=== PATIENT | male | born 1955 | race Caucasian/White ===

== ENCOUNTER 2016-12-04 13:02 | Inpatient (IN) | payer MEDICAID ==
[~2016-12-04] VITALS: Ht 175.3 cm; Wt 76.7 kg
[~2016-12-04 13:02] MED LIST: AMIO100T4 PO; ASPI-518 PO; ATOR40TA70 PO; CALC-751 PO; DIPH50TA19 PO; FOLATE; FOLI-43 PO; FURO-152 PO; LISI10TA5 PO; METO-298 PO; MULT-1146 PO; OMEP20CA10 PO; POTA10CA42 PO; SPIR25TA4 PO; THIA100T13 PO; TRAM50TA3 PO; WARF5TAB76 PO
[2016-12-04 14:57] LABS: BASOPHILS % 2.6 % (0.0-2.0); DIFFERENTIAL COMMENT 0; EOSINOPHILS % 4.1 % (0.0-5.0); HEMATOCRIT. 28.8 % (42.0-52.0); HEMOGLOBIN. 9.4 g/dL (14.0-18.0); LYMPHOCYTES % 26.4 % (20.0-50.0); MEAN CORPUSCULAR HEMOGLOBIN 32.7 pg (28.0-32.0); MEAN CORPUSCULAR HGB CONC 32.6 g/dL (31.0-37.0); MEAN CORPUSCULAR VOLUME 100.2 fL (80.0-94.0); MEAN PLATELET VOLUME 8.9 fl (7.4-10.4); MONOCYTES % 9.8 % (2.0-8.0); NEUTROPHILS % 57.1 % (40.0-76.0); PLATELET 55 x1000/uL (130-400); RED BLOOD CELL COUNT 2.87 mill/uL (4.7-6.1); RED CELL DISTRIBUTION WIDTH 18.8 % (11.6-14.6); WHITE BLOOD COUNT 5.7 x1000/uL (4.5-11.0)
[2016-12-04 15:07] LABS: ALBUMIN 2.5 g/dL (3.4-5.0); ANION GAP 12; CALCIUM 8.3 mg/dL (8.5-10.1); CARBON DIOXIDE 21 mEq/L (21-32); CHLORIDE 112 mEq/L (98-107); INDEX HEMOLYSI 2 (1-3); INDEX ICTERIC 3 (1-4); INDEX LIPEMIC 1 (1-3); INR 1.2; PROTHROMBIN TIME 12.9 sec
[2016-12-04 15:09] LABS: UREA NITROGEN BLOOD 20 mg/dL (7-21)
[2016-12-04 15:15] LABS: ALANINE AMINOTRANSFERASE 90 IU/L (13-61); NT PRO B-TYPE NATRIURETIC PEP 2110 pg/mL (5-125); TROPONIN I 0.02 ng/mL (0.00-0.04); eGFR 57 mL/min (>60)
[2016-12-04] MEDS ORDERED: POTASSIUM CHLORIDE 20MEQ TABLET SR PO ONE (16:00)
[2016-12-04] MEDS ORDERED: FENTANYL CITRATE/PF 50MCG/ML 2ML VIAL IV ONE (16:00)
[2016-12-04] MEDS ORDERED: FUROSEMIDE 40MG/4ML VIAL IVP ONE (16:45)
[2016-12-04] MEDS ORDERED: DIPHENHYDRAMINE 50MG/ML VIAL IV PRN (17:15)
[2016-12-04] MEDS ORDERED: CLONIDINE 0.1MG TABLET PO PRN (17:15)
[2016-12-04 18:48] LABS: CLARITY URINE CLEAR (CLEAR); COLOR URINE DARK YELLOW (YELLOW); GLUCOSE URINE NEGATIVE (NEGATIVE); KETONES URINE TRACE (NEGATIVE); LEUKOCYTE ESTERASE URINE NEGATIVE (NEGATIVE); NITRITE URINE NEGATIVE (NEGATIVE); OCCULT BLOOD URINE NEGATIVE (NEGATIVE); PH URINE 5.5 (4.5-8.0); PROTEIN URINE 1+ (NEGATIVE); SPECIFIC GRAVITY URINE 1.018 (1.005-1.030)
[2016-12-04 19:20] LABS: BACTERIA URINE 1+; RBC URINE 0-2 /hpf (0-2); SQUAMOUS EPITHELIAL CELL URINE NONE SEEN /lpf (RARE/1+); WBC URINE 0-2 /hpf (0-2)
[2016-12-04 19:21] LABS: COARSE GRANULAR CASTS URINE 0-5 /lpf
[2016-12-04 22:30] VITALS: BP 104/60
[2016-12-05] VITALS: BP 113/67
[2016-12-05] MEDS: PANTOPRAZOLE SODIUM 40 MG/VIAL IV SCH ×2 (00:36→09:24)
[2016-12-05] MEDS: HYDROCODONE/ACETAMINOPHEN 5/325MG TABLET PO PRN ×3 (00:37→17:20)
[2016-12-05] MEDS: DEXT 5%/0.45% NACL 1000ML 1,000 ML IV SCH ×3 (00:39→21:01)
[2016-12-05 04:00] VITALS: BP 90/42
[2016-12-05 05:55] LABS: HEMATOCRIT. 26.9 % (42.0-52.0); HEMOGLOBIN. 8.7 g/dL (14.0-18.0); MEAN CORPUSCULAR HGB CONC 32.2 g/dL (31.0-37.0); MEAN CORPUSCULAR VOLUME 99.2 fL (80.0-94.0); MEAN PLATELET VOLUME 8.9 fl (7.4-10.4); PLATELET 52 x1000/uL (130-400); RED BLOOD CELL COUNT 2.71 mill/uL (4.7-6.1); RED CELL DISTRIBUTION WIDTH 18.8 % (11.6-14.6); WHITE BLOOD COUNT 5.6 x1000/uL (4.5-11.0)
[2016-12-05 06:06] LABS: CHLORIDE 112 mEq/L (98-107); INDEX HEMOLYSI 1 (1-3); INDEX ICTERIC 3 (1-4); INDEX LIPEMIC 1 (1-3)
[2016-12-05 06:27] LABS: DIFFERENTIAL COMMENT 1
[2016-12-05 07:22] LABS: ALANINE AMINOTRANSFERASE 81 IU/L (13-61); ALBUMIN 2.2 g/dL (3.4-5.0); ANION GAP 12; CARBON DIOXIDE 23 mEq/L (21-32); HDL CHOLESTEROL 16 mg/dL (40-59); LDL CHOLESTEROL 119 mg/dL (5-100); TRIGLYCERIDE 39 mg/dL (0-150); TROPONIN I 0.02 ng/mL (0.00-0.04); UREA NITROGEN BLOOD 20 mg/dL (7-21); eGFR 52 mL/min (>60)
[2016-12-05 07:30] LABS: CALCIUM 8.1 mg/dL (8.5-10.1)
[2016-12-05 08:00] VITALS: BP 110/49
[2016-12-05 12:00] VITALS: BP 114/64
[2016-12-05 12:15] LABS: PLATELET ESTIMATE DECREASED
[2016-12-05 12:16] LABS: ANISOCYTOSIS 1+
[2016-12-05 12:17] LABS: HYPOCHROMASIA 1+
[2016-12-05 12:33] LABS: AMMONIA 45 uMol/L (<32)
[2016-12-05 16:00] VITALS: BP 129/61
[2016-12-05] MEDS ORDERED: LISI-604 PO (16:01)
[2016-12-05] MEDS ORDERED: METO-298 PO (16:04)
[2016-12-05] MEDS ORDERED: DULO60CA44 PO (16:04)
[2016-12-05] MEDS ORDERED: LACT10SO6 PO (16:04)
[2016-12-05] MEDS: FUROSEMIDE 40MG/4ML VIAL IVP SCH (16:20)
[2016-12-05] MEDS: LACTULOSE 20G/30ML UDC PO SCH ×2 (16:20→21:01)
[2016-12-05 20:00] VITALS: BP 96/65
[2016-12-06] VITALS (14 sets, daily range): BP systolic 80–115; BP diastolic 47–79
[2016-12-06] MEDS: FUROSEMIDE 40MG/4ML VIAL IVP SCH ×3 (04:00→17:16)
[2016-12-06] MEDS: LACTULOSE 20G/30ML UDC PO SCH ×3 (06:38→21:57)
[2016-12-06 07:34] LABS: BASOPHILS % 1.3 % (0.0-2.0); EOSINOPHILS % 4.8 % (0.0-5.0); HEMATOCRIT. 27.5 % (42.0-52.0); HEMOGLOBIN. 8.8 g/dL (14.0-18.0); LYMPHOCYTES % 23.6 % (20.0-50.0); MEAN CORPUSCULAR HEMOGLOBIN 31.6 pg (28.0-32.0); MEAN CORPUSCULAR HGB CONC 32.1 g/dL (31.0-37.0); MEAN CORPUSCULAR VOLUME 98.5 fL (80.0-94.0); MEAN PLATELET VOLUME 8.7 fl (7.4-10.4); MONOCYTES % 12.4 % (2.0-8.0); NEUTROPHILS % 57.9 % (40.0-76.0); RED BLOOD CELL COUNT 2.79 mill/uL (4.7-6.1); RED CELL DISTRIBUTION WIDTH 18.4 % (11.6-14.6); WHITE BLOOD COUNT 4.8 x1000/uL (4.5-11.0)
[2016-12-06 08:31] LABS: ALANINE AMINOTRANSFERASE 70 IU/L (13-61); ALBUMIN 2.1 g/dL (3.4-5.0); ANION GAP 12; CALCIUM 8.1 mg/dL (8.5-10.1); CARBON DIOXIDE 25 mEq/L (21-32); CHLORIDE 110 mEq/L (98-107); INDEX HEMOLYSI 2 (1-3); INDEX ICTERIC 3 (1-4); INDEX LIPEMIC 1 (1-3); LIPASE 409 IU/L (73-393); MAGNESIUM 1.5 mg/dL (1.8-2.4); UREA NITROGEN BLOOD 19 mg/dL (7-21); eGFR 48 mL/min (>60)
[2016-12-06] MEDS: PANTOPRAZOLE SODIUM 40 MG/VIAL IV SCH (09:11)
[2016-12-06] MEDS: DEXT 5%/0.45% NACL 1000ML 1,000 ML IV SCH (11:36)
[2016-12-06] MEDS: IPRATROPIUM/ALBUTEROL 0.5-3(2.5)MG/3ML NEB INH PRN (15:06)
[2016-12-06] MEDS ORDERED: POTASSIUM CHLORIDE 20MEQ TABLET SR PO NR (16:30)
[2016-12-06] MEDS: HYDROCODONE/ACETAMINOPHEN 5/325MG TABLET PO PRN (21:58)
[2016-12-07] VITALS (11 sets, daily range): BP systolic 90–109; BP diastolic 43–78
[2016-12-07] MEDS: LACTULOSE 20G/30ML UDC PO SCH ×3 (06:03→21:47)
[2016-12-07] MEDS: FUROSEMIDE 40MG/4ML VIAL IVP SCH (06:03)
[2016-12-07 06:57] LABS: BASOPHILS % 0.5 % (0.0-2.0); EOSINOPHILS % 4.4 % (0.0-5.0); HEMATOCRIT. 25.7 % (42.0-52.0); HEMOGLOBIN. 8.5 g/dL (14.0-18.0); LYMPHOCYTES % 27.1 % (20.0-50.0); MEAN CORPUSCULAR HGB CONC 33.2 g/dL (31.0-37.0); MEAN CORPUSCULAR VOLUME 96.4 fL (80.0-94.0); MONOCYTES % 11.9 % (2.0-8.0); NEUTROPHILS % 56.1 % (40.0-76.0); RED BLOOD CELL COUNT 2.66 mill/uL (4.7-6.1); RED CELL DISTRIBUTION WIDTH 17.7 % (11.6-14.6); WHITE BLOOD COUNT 4.6 x1000/uL (4.5-11.0)
[2016-12-07 07:28] LABS: DIFFERENTIAL COMMENT 1; PLATELET 48 x1000/uL (130-400)
[2016-12-07 07:29] LABS: ADD RBC MORPHOLOGY YES
[2016-12-07 07:48] LABS: CALCIUM 7.7 mg/dL (8.5-10.1); MAGNESIUM 1.4 mg/dL (1.8-2.4)
[2016-12-07 08:43] LABS: ANISOCYTOSIS 2+; PLATELET ESTIMATE MARKEDLY DECREASED; TARGET CELLS 1+
[2016-12-07] MEDS: PANTOPRAZOLE SODIUM 40 MG/VIAL IV SCH (08:52)
[2016-12-07] MEDS: HYDROCODONE/ACETAMINOPHEN 5/325MG TABLET PO PRN ×2 (08:52→21:48)
[2016-12-07] MEDS ORDERED: MAGNESIUM 2 G PREMIX 50 ML IV SCH (11:00)
[2016-12-07] MEDS ORDERED: POTASSIUM CHLORIDE 20MEQ TABLET SR PO SCH (11:00)
[2016-12-07 17:48] LABS: FOLIC ACID (FOLATE) SERUM 7.6 ng/mL (>5.38)
[2016-12-07] MEDS: FOLIC ACID 1MG TABLET PO SCH (21:47)
[2016-12-07] MEDS: FUROSEMIDE 20MG/2ML VIAL IVP SCH (21:48)
[2016-12-08] VITALS (15 sets, daily range): BP systolic 88–115; BP diastolic 28–75
[2016-12-08] MEDS: LACTULOSE 20G/30ML UDC PO SCH ×3 (05:31→21:47)
[2016-12-08 06:14] LABS: AMMONIA 38 uMol/L (<32)
[2016-12-08 06:19] LABS: INR 1.3; PARTIAL THROMBOPLASTIN TIME 28.7 sec (24.0-34.0); PROTHROMBIN TIME 13.4 sec
[2016-12-08 06:52] LABS: BASOPHILS % 0.9 % (0.0-2.0); EOSINOPHILS % 5.4 % (0.0-5.0); HEMATOCRIT. 28.5 % (42.0-52.0); HEMOGLOBIN. 9.5 g/dL (14.0-18.0); LYMPHOCYTES % 28.3 % (20.0-50.0); MEAN CORPUSCULAR HEMOGLOBIN 32.2 pg (28.0-32.0); MEAN CORPUSCULAR HGB CONC 33.4 g/dL (31.0-37.0); MEAN CORPUSCULAR VOLUME 96.3 fL (80.0-94.0); MEAN PLATELET VOLUME 9.1 fl (7.4-10.4); MONOCYTES % 11.4 % (2.0-8.0); RED BLOOD CELL COUNT 2.96 mill/uL (4.7-6.1); RED CELL DISTRIBUTION WIDTH 18.1 % (11.6-14.6)
[2016-12-08 07:22] LABS: CHLORIDE 105 mEq/L (98-107); INDEX HEMOLYSI 1 (1-3); INDEX ICTERIC 3 (1-4); INDEX LIPEMIC 1 (1-3)
[2016-12-08 07:28] LABS: PLATELET 45 x1000/uL (130-400)
[2016-12-08 07:29] LABS: DIFFERENTIAL COMMENT 1
[2016-12-08 07:45] LABS: ALANINE AMINOTRANSFERASE 81 IU/L (13-61); ALBUMIN 2.2 g/dL (3.4-5.0); ANION GAP 14; BILIRUBIN DIRECT 4.1 mg/dL (0.0-0.2); CARBON DIOXIDE 27 mEq/L (21-32); IRON 69 ug/dL (50-175); MAGNESIUM 1.4 mg/dL (1.8-2.4); TOTAL IRON BINDING CAPACITY 203 ug/dL (250-450); UREA NITROGEN BLOOD 15 mg/dL (7-21); eGFR 52 mL/min (>60)
[2016-12-08] MEDS: PANTOPRAZOLE SODIUM 40 MG/VIAL IV SCH (10:24)
[2016-12-08] MEDS: FOLIC ACID 1MG TABLET PO SCH (10:24)
[2016-12-08] MEDS: FUROSEMIDE 20MG/2ML VIAL IVP SCH ×2 (10:24→21:47)
[2016-12-08 13:22] LABS: ADD RBC MORPHOLOGY YES
[2016-12-08 13:25] LABS: PLATELET 49 x1000/uL (130-400)
[2016-12-08] MEDS ORDERED: MAGNESIUM 4 G PREMIX 100 ML IV NR (14:30)
[2016-12-08] MEDS: RIFAXIMIN 550 MG TABLET PO SCH ×2 (14:35→21:47)
[2016-12-08] MEDS: POTASSIUM CHLORIDE 20MEQ TABLET SR PO SCH ×3 (14:35→21:47)
[2016-12-08] MEDS: HYDROCODONE/ACETAMINOPHEN 5/325MG TABLET PO PRN (15:12)
[2016-12-08] MEDS ORDERED: BISACODYL 5MG TABLET PO SCH ×2 (16:00→20:00)
[2016-12-08] MEDS ORDERED: SORBITOL 70% SOLN 30ML PO SCH ×2 (16:00→20:00)
[2016-12-08] MEDS: ACETAMINOPHEN 325MG TABLET PO PRN (21:47)
[2016-12-08] MEDS: ONDANSETRON HCL 4MG/2ML VIAL IV PRN (22:02)
[2016-12-09] VITALS (12 sets, daily range): BP systolic 85–114; BP diastolic 42–77
[2016-12-09] MEDS ORDERED: SORBITOL 70% SOLN 30ML PO SCH (06:00)
[2016-12-09] MEDS: ONDANSETRON HCL 4MG/2ML VIAL IV PRN (06:37)
[2016-12-09] MEDS: LACTULOSE 20G/30ML UDC PO SCH ×3 (06:40→21:00)
[2016-12-09 06:45] LABS: INR 1.3; PARTIAL THROMBOPLASTIN TIME 29.4 sec (24.0-34.0); PROTHROMBIN TIME 13.4 sec
[2016-12-09 06:50] LABS: AMMONIA < 10 uMol/L (<32); INDEX HEMOLYSI 2 (1-3)
[2016-12-09 06:52] LABS: CALCIUM 8.2 mg/dL (8.5-10.1); MAGNESIUM 2.4 mg/dL (1.8-2.4)
[2016-12-09 07:08] LABS: BASOPHILS % 1.7 % (0.0-2.0); EOSINOPHILS % 6.4 % (0.0-5.0); HEMOGLOBIN. 9.9 g/dL (14.0-18.0); LYMPHOCYTES % 24.5 % (20.0-50.0); MEAN CORPUSCULAR HEMOGLOBIN 31.6 pg (28.0-32.0); MEAN CORPUSCULAR HGB CONC 32.8 g/dL (31.0-37.0); MEAN CORPUSCULAR VOLUME 96.3 fL (80.0-94.0); NEUTROPHILS % 54.4 % (40.0-76.0); RED BLOOD CELL COUNT 3.12 mill/uL (4.7-6.1); RED CELL DISTRIBUTION WIDTH 17.7 % (11.6-14.6); WHITE BLOOD COUNT 5.4 x1000/uL (4.5-11.0)
[2016-12-09 07:25] LABS: DIFFERENTIAL COMMENT 1
[2016-12-09 08:10] LABS: PLATELET 58 x1000/uL (130-400)
[2016-12-09] MEDS: PANTOPRAZOLE SODIUM 40 MG/VIAL IV SCH (08:16)
[2016-12-09] MEDS: POTASSIUM CHLORIDE 20MEQ TABLET SR PO SCH ×5 (08:16→21:01)
[2016-12-09] MEDS: RIFAXIMIN 550 MG TABLET PO SCH ×2 (08:16→21:00)
[2016-12-09] MEDS: FUROSEMIDE 20MG/2ML VIAL IVP SCH (08:16)
[2016-12-09] MEDS: FOLIC ACID 1MG TABLET PO SCH (08:16)
[2016-12-09] MEDS ORDERED: SIMETHICONE 40 MG/0.6 ML 30ML ONE ×2 (11:46→14:07)
[2016-12-09] MEDS ORDERED: SODIUM CHLORIDE 0.9% 10ML VIAL ONE (11:46)
[2016-12-09] MEDS ORDERED: FENTANYL CITRATE/PF 50MCG/ML 2ML VIAL ONE (14:07)
[2016-12-09] MEDS ORDERED: MIDAZOLAM HCL 5 MG/5 ML VIAL ONE (14:07)
[2016-12-09] MEDS ORDERED: MIDAZOLAM HCL 2 MG/2 ML VIAL IV PRN (14:10)
[2016-12-09] MEDS ORDERED: FENTANYL CITRATE/PF 50MCG/ML 2ML VIAL IV PRN (14:10)
[2016-12-09] MEDS: POTASSIUM CHLORIDE INJ 40 MEQ in DEXT 5% WATER 250 ML IV NR (14:30)
[2016-12-09] MEDS: FUROSEMIDE 20MG TABLET PO SCH (21:00)
[2016-12-10] VITALS (12 sets, daily range): BP systolic 85–108; BP diastolic 56–77
[2016-12-10] MEDS: LACTULOSE 20G/30ML UDC PO SCH ×3 (05:30→21:26)
[2016-12-10 06:52] LABS: BASOPHILS % 1.4 % (0.0-2.0); EOSINOPHILS % 5.7 % (0.0-5.0); HEMATOCRIT. 29.2 % (42.0-52.0); HEMOGLOBIN. 9.4 g/dL (14.0-18.0); LYMPHOCYTES % 26.4 % (20.0-50.0); MEAN CORPUSCULAR HEMOGLOBIN 31.2 pg (28.0-32.0); MEAN CORPUSCULAR HGB CONC 32.4 g/dL (31.0-37.0); MEAN CORPUSCULAR VOLUME 96.3 fL (80.0-94.0); MONOCYTES % 9.7 % (2.0-8.0); NEUTROPHILS % 56.8 % (40.0-76.0); RED BLOOD CELL COUNT 3.03 mill/uL (4.7-6.1); RED CELL DISTRIBUTION WIDTH 17.7 % (11.6-14.6); WHITE BLOOD COUNT 5.6 x1000/uL (4.5-11.0)
[2016-12-10 07:32] LABS: CHLORIDE 110 mEq/L (98-107); INDEX HEMOLYSI 2 (1-3); INDEX ICTERIC 3 (1-4); INDEX LIPEMIC 1 (1-3)
[2016-12-10 07:43] LABS: ANION GAP 10; CALCIUM 8.1 mg/dL (8.5-10.1); CARBON DIOXIDE 32 mEq/L (21-32); MAGNESIUM 1.8 mg/dL (1.8-2.4); UREA NITROGEN BLOOD 11 mg/dL (7-21); eGFR > 60 mL/min (>60)
[2016-12-10] MEDS: FUROSEMIDE 20MG TABLET PO SCH ×2 (08:03→21:25)
[2016-12-10] MEDS: FOLIC ACID 1MG TABLET PO SCH (08:03)
[2016-12-10] MEDS: RIFAXIMIN 550 MG TABLET PO SCH ×2 (08:03→21:25)
[2016-12-10] MEDS: POTASSIUM CHLORIDE 20MEQ TABLET SR PO SCH ×4 (08:03→21:25)
[2016-12-10] MEDS: ACETAMINOPHEN 325MG TABLET PO PRN (08:03)
[2016-12-10] MEDS: PANTOPRAZOLE SODIUM 40 MG/VIAL IV SCH (08:03)
[2016-12-10 09:34] LABS: DIFFERENTIAL COMMENT 1
[2016-12-10 10:37] LABS: PLATELET 48 x1000/uL (130-400)
[2016-12-10] MEDS ORDERED: PROT40 PO (12:59)
[2016-12-10] MEDS: HYDROCODONE/ACETAMINOPHEN 5/325MG TABLET PO PRN ×2 (13:20→21:24)
[2016-12-11] VITALS (22 sets, daily range): BP systolic 69–131; BP diastolic 42–71
[2016-12-11] MEDS: ACETAMINOPHEN 325MG TABLET PO PRN (01:24)
[2016-12-11] MEDS ORDERED: SODIUM CHLORIDE 0.9% 250 ML IV ONE (05:00)
[2016-12-11] MEDS: LACTULOSE 20G/30ML UDC PO SCH ×3 (06:37→22:28)
[2016-12-11] MEDS: FUROSEMIDE 20MG TABLET PO SCH (08:18)
[2016-12-11] MEDS: PANTOPRAZOLE SODIUM 40 MG/VIAL IV SCH (08:40)
[2016-12-11] MEDS: RIFAXIMIN 550 MG TABLET PO SCH ×2 (08:41→20:23)
[2016-12-11] MEDS: POTASSIUM CHLORIDE 20MEQ TABLET SR PO SCH ×3 (08:41→17:14)
[2016-12-11] MEDS: FOLIC ACID 1MG TABLET PO SCH (08:41)
[2016-12-12] VITALS (13 sets, daily range): BP systolic 84–112; BP diastolic 58–75
[2016-12-12 05:43] LABS: BASOPHILS % 0.7 % (0.0-2.0); EOSINOPHILS % 3.5 % (0.0-5.0); HEMATOCRIT. 26.9 % (42.0-52.0); HEMOGLOBIN. 8.9 g/dL (14.0-18.0); LYMPHOCYTES % 15.1 % (20.0-50.0); MEAN CORPUSCULAR HEMOGLOBIN 31.9 pg (28.0-32.0); MEAN CORPUSCULAR HGB CONC 33.1 g/dL (31.0-37.0); MEAN CORPUSCULAR VOLUME 96.5 fL (80.0-94.0); MEAN PLATELET VOLUME 9.1 fl (7.4-10.4); NEUTROPHILS % 67.7 % (40.0-76.0); RED BLOOD CELL COUNT 2.79 mill/uL (4.7-6.1); RED CELL DISTRIBUTION WIDTH 17.2 % (11.6-14.6)
[2016-12-12] MEDS: LACTULOSE 20G/30ML UDC PO SCH ×3 (05:48→22:00)
[2016-12-12 06:03] LABS: DIFFERENTIAL COMMENT 1
[2016-12-12 06:04] LABS: CALCIUM 7.9 mg/dL (8.5-10.1); MAGNESIUM 1.7 mg/dL (1.8-2.4); PLATELET 32 x1000/uL (130-400)
[2016-12-12] MEDS: FOLIC ACID 1MG TABLET PO SCH (09:39)
[2016-12-12] MEDS: PANTOPRAZOLE SODIUM 40 MG/VIAL IV SCH (09:39)
[2016-12-12] MEDS: POTASSIUM CHLORIDE 20MEQ TABLET SR PO SCH ×3 (09:39→18:04)
[2016-12-12] MEDS: RIFAXIMIN 550 MG TABLET PO SCH ×2 (09:39→21:00)
[2016-12-12] MEDS: FUROSEMIDE 20MG TABLET PO SCH (10:00)
[2016-12-12] MEDS ORDERED: MAGNESIUM 2 G PREMIX 50 ML IV NR (12:30)
[2016-12-13] VITALS: BP 92/69
[2016-12-13] MEDS: HYDROCODONE/ACETAMINOPHEN 5/325MG TABLET PO PRN ×2 (03:38→12:32)
[2016-12-13 04:00] VITALS: BP 95/69
[2016-12-13] MEDS: LACTULOSE 20G/30ML UDC PO SCH ×3 (05:18→21:14)
[2016-12-13 05:49] LABS: BASOPHILS % 0.7 % (0.0-2.0); HEMATOCRIT. 28.6 % (42.0-52.0); HEMOGLOBIN. 9.2 g/dL (14.0-18.0); LYMPHOCYTES % 17.9 % (20.0-50.0); MEAN CORPUSCULAR HEMOGLOBIN 30.8 pg (28.0-32.0); MEAN CORPUSCULAR HGB CONC 32.2 g/dL (31.0-37.0); MEAN CORPUSCULAR VOLUME 95.6 fL (80.0-94.0); MONOCYTES % 12.6 % (2.0-8.0); NEUTROPHILS % 64.8 % (40.0-76.0); RED CELL DISTRIBUTION WIDTH 17.3 % (11.6-14.6)
[2016-12-13] MEDS: IPRATROPIUM/ALBUTEROL 0.5-3(2.5)MG/3ML NEB INH PRN (05:51)
[2016-12-13 06:05] LABS: CALCIUM 8.4 mg/dL (8.5-10.1); MAGNESIUM 2.1 mg/dL (1.8-2.4)
[2016-12-13 06:07] LABS: DIFFERENTIAL COMMENT 1
[2016-12-13 08:00] VITALS: BP 92/59
[2016-12-13] MEDS: POTASSIUM CHLORIDE 20MEQ TABLET SR PO SCH (08:36)
[2016-12-13] MEDS: FUROSEMIDE 20MG TABLET PO SCH (08:43)
[2016-12-13] MEDS: FOLIC ACID 1MG TABLET PO SCH (08:43)
[2016-12-13] MEDS: RIFAXIMIN 550 MG TABLET PO SCH ×2 (08:43→21:14)
[2016-12-13] MEDS: PANTOPRAZOLE SODIUM 40 MG/VIAL IV SCH (08:44)
[2016-12-13 09:40] LABS: MEAN PLATELET VOLUME 10.2 fl (7.4-10.4); PLATELET 44 x1000/uL (130-400)
[2016-12-13 12:00] VITALS: BP 101/70
[2016-12-13 16:06] VITALS: BP 90/71
[2016-12-13 20:00] VITALS: BP 99/56
[2016-12-14] VITALS: BP 95/60
[2016-12-14 04:00] VITALS: BP 101/69
[2016-12-14] MEDS: LACTULOSE 20G/30ML UDC PO SCH ×3 (06:20→21:23)
[2016-12-14 07:14] LABS: BASOPHILS % 0.7 % (0.0-2.0); EOSINOPHILS % 3.3 % (0.0-5.0); HEMATOCRIT. 29.4 % (42.0-52.0); HEMOGLOBIN. 9.7 g/dL (14.0-18.0); LYMPHOCYTES % 13.4 % (20.0-50.0); MEAN CORPUSCULAR HEMOGLOBIN 31.4 pg (28.0-32.0); MEAN CORPUSCULAR HGB CONC 32.9 g/dL (31.0-37.0); MEAN CORPUSCULAR VOLUME 95.4 fL (80.0-94.0); MONOCYTES % 11.3 % (2.0-8.0); NEUTROPHILS % 71.3 % (40.0-76.0); RED BLOOD CELL COUNT 3.08 mill/uL (4.7-6.1); RED CELL DISTRIBUTION WIDTH 17.2 % (11.6-14.6); WHITE BLOOD COUNT 8.7 x1000/uL (4.5-11.0)
[2016-12-14 07:24] LABS: DIFFERENTIAL COMMENT 1
[2016-12-14 08:00] VITALS: BP 94/77
[2016-12-14 08:01] LABS: CALCIUM 8.2 mg/dL (8.5-10.1)
[2016-12-14 08:45] LABS: MAGNESIUM 1.7 mg/dL (1.8-2.4)
[2016-12-14] MEDS: PANTOPRAZOLE SODIUM 40 MG/VIAL IV SCH (08:54)
[2016-12-14] MEDS: FOLIC ACID 1MG TABLET PO SCH (08:54)
[2016-12-14] MEDS: RIFAXIMIN 550 MG TABLET PO SCH ×2 (08:54→21:00)
[2016-12-14 09:24] LABS: MEAN PLATELET VOLUME 9.4 fl (7.4-10.4); PLATELET 47 x1000/uL (130-400)
[2016-12-14] MEDS: FUROSEMIDE 20MG TABLET PO SCH (10:11)
[2016-12-14] MEDS: POTASSIUM CHLORIDE 20MEQ TABLET SR PO SCH ×3 (10:11→16:06)
[2016-12-14 12:00] VITALS: BP 92/62
[2016-12-14] MEDS ORDERED: MAGNESIUM 1 G PREMIX 100 ML IV NR (12:00)
[2016-12-14] MEDS: ONDANSETRON HCL 4MG/2ML VIAL IV PRN (15:19)
[2016-12-14 16:00] VITALS: BP 87/62
[2016-12-14] MEDS ORDERED: MAGNESIUM 2 G PREMIX 50 ML IV SCH (16:00)
[2016-12-14] MEDS: MAGNESIUM/ALUMINUM HYDROXIDE/SIMETHICONE 30ML UDC PO PRN ×2 (17:11→21:28)
[2016-12-14 20:00] VITALS: BP 88/61
[2016-12-14] MEDS: HYDROCODONE/ACETAMINOPHEN 5/325MG TABLET PO PRN (23:55)
[2016-12-15] VITALS: BP 107/71
[2016-12-15 04:00] VITALS: BP 103/70
[2016-12-15] MEDS: LACTULOSE 20G/30ML UDC PO SCH ×3 (06:00→21:32)
[2016-12-15] MEDS: MAGNESIUM/ALUMINUM HYDROXIDE/SIMETHICONE 30ML UDC PO PRN (06:02)
[2016-12-15 07:20] LABS: HEMATOCRIT. 29.5 % (42.0-52.0); HEMOGLOBIN. 9.8 g/dL (14.0-18.0); MEAN CORPUSCULAR HEMOGLOBIN 31.4 pg (28.0-32.0); MEAN CORPUSCULAR HGB CONC 33.3 g/dL (31.0-37.0); MEAN CORPUSCULAR VOLUME 94.4 fL (80.0-94.0); MEAN PLATELET VOLUME 9.9 fl (7.4-10.4); RED BLOOD CELL COUNT 3.12 mill/uL (4.7-6.1); RED CELL DISTRIBUTION WIDTH 16.9 % (11.6-14.6); WHITE BLOOD COUNT 15.9 x1000/uL (4.5-11.0)
[2016-12-15 07:31] LABS: CHLORIDE 100 mEq/L (98-107); INDEX HEMOLYSI 3 (1-3); INDEX ICTERIC 3 (1-4); INDEX LIPEMIC 1 (1-3)
[2016-12-15 07:39] LABS: DIFFERENTIAL COMMENT 1; PLATELET 48 x1000/uL (130-400)
[2016-12-15 08:00] VITALS: BP 90/50
[2016-12-15 08:09] LABS: ANION GAP 15; CALCIUM 7.5 mg/dL (8.5-10.1); CARBON DIOXIDE 24 mEq/L (21-32); MAGNESIUM 1.9 mg/dL (1.8-2.4); UREA NITROGEN BLOOD 15 mg/dL (7-21); eGFR > 60 mL/min (>60)
[2016-12-15] MEDS: POTASSIUM CHLORIDE 20MEQ TABLET SR PO SCH ×3 (08:37→17:27)
[2016-12-15] MEDS: PANTOPRAZOLE SODIUM 40 MG/VIAL IV SCH (08:37)
[2016-12-15] MEDS: RIFAXIMIN 550 MG TABLET PO SCH ×2 (08:37→20:55)
[2016-12-15] MEDS: FOLIC ACID 1MG TABLET PO SCH (08:37)
[2016-12-15 08:39] LABS: ANISOCYTOSIS 1+; PLATELET ESTIMATE MARKEDLY DECREASED
[2016-12-15] MEDS: FUROSEMIDE 20MG TABLET PO SCH (08:44)
[2016-12-15 12:00] VITALS: BP 90/55
[2016-12-15 16:00] VITALS: BP 100/60
[2016-12-15] MEDS: ACETAMINOPHEN 325MG TABLET PO PRN (19:56)
[2016-12-15 20:00] VITALS: BP 116/76
[2016-12-16] VITALS (7 sets, daily range): BP systolic 75–99; BP diastolic 50–71
[2016-12-16] MEDS: LACTULOSE 20G/30ML UDC PO SCH ×3 (05:29→22:00)
[2016-12-16] MEDS: RIFAXIMIN 550 MG TABLET PO SCH ×2 (09:00→20:20)
[2016-12-16] MEDS: POTASSIUM CHLORIDE 20MEQ TABLET SR PO SCH ×3 (09:00→17:12)
[2016-12-16] MEDS: FOLIC ACID 1MG TABLET PO SCH (09:01)
[2016-12-16] MEDS: PANTOPRAZOLE SODIUM 40 MG/VIAL IV SCH (09:01)
[2016-12-16] MEDS: FUROSEMIDE 20MG TABLET PO SCH (09:01)
[2016-12-16 09:30] LABS: HEMATOCRIT. 28.8 % (42.0-52.0); HEMOGLOBIN. 9.3 g/dL (14.0-18.0); MEAN CORPUSCULAR HEMOGLOBIN 30.5 pg (28.0-32.0); MEAN CORPUSCULAR HGB CONC 32.2 g/dL (31.0-37.0); MEAN CORPUSCULAR VOLUME 94.6 fL (80.0-94.0); MEAN PLATELET VOLUME 10.5 fl (7.4-10.4); RED BLOOD CELL COUNT 3.04 mill/uL (4.7-6.1); RED CELL DISTRIBUTION WIDTH 17.6 % (11.6-14.6); WHITE BLOOD COUNT 25.5 x1000/uL (4.5-11.0)
[2016-12-16 09:46] LABS: DIFFERENTIAL COMMENT 1
[2016-12-16 09:56] LABS: CALCIUM 8.1 mg/dL (8.5-10.1); MAGNESIUM 2.1 mg/dL (1.8-2.4)
[2016-12-16 10:27] LABS: ACANTHOCYTES 1+; ANISOCYTOSIS 1+; PLATELET ESTIMATE MARKEDLY DECREASED
[2016-12-16 10:29] LABS: PLATELET 49 x1000/uL (130-400)
[2016-12-16 10:37] LABS: DIFFERENTIAL COMMENT 1
[2016-12-16 20:10] LABS: CLARITY URINE CLOUDY (CLEAR); COLOR URINE DARK YELLOW (YELLOW); GLUCOSE URINE NEGATIVE (NEGATIVE); KETONES URINE NEGATIVE (NEGATIVE); LEUKOCYTE ESTERASE URINE 1+ (NEGATIVE); NITRITE URINE POSITIVE (NEGATIVE); OCCULT BLOOD URINE 2+ (NEGATIVE); PH URINE 5.5 (4.5-8.0); PROTEIN URINE 1+ (NEGATIVE)
[2016-12-16 20:47] LABS: BACTERIA URINE 3+; COARSE GRANULAR CASTS URINE 0-5 /lpf; RBC URINE 0-2 /hpf (0-2); SQUAMOUS EPITHELIAL CELL URINE NONE SEEN /lpf (RARE/1+); WBC URINE 0-2 /hpf (0-2)
[2016-12-17] VITALS: BP 95/65
[2016-12-17 04:00] VITALS: BP 93/62
[2016-12-17] MEDS: LACTULOSE 20G/30ML UDC PO SCH ×3 (05:35→21:57)
[2016-12-17 06:20] LABS: BASOPHILS % 0.2 % (0.0-2.0); EOSINOPHILS % 0.7 % (0.0-5.0); HEMATOCRIT. 27.9 % (42.0-52.0); HEMOGLOBIN. 9.1 g/dL (14.0-18.0); LYMPHOCYTES % 8.5 % (20.0-50.0); MEAN CORPUSCULAR HEMOGLOBIN 30.6 pg (28.0-32.0); MEAN CORPUSCULAR HGB CONC 32.7 g/dL (31.0-37.0); MEAN CORPUSCULAR VOLUME 93.7 fL (80.0-94.0); MONOCYTES % 11.7 % (2.0-8.0); NEUTROPHILS % 78.9 % (40.0-76.0); RED BLOOD CELL COUNT 2.98 mill/uL (4.7-6.1); RED CELL DISTRIBUTION WIDTH 18.2 % (11.6-14.6); WHITE BLOOD COUNT 22.1 x1000/uL (4.5-11.0)
[2016-12-17 08:00] VITALS: BP 90/60
[2016-12-17 08:18] LABS: DIFFERENTIAL COMMENT 1
[2016-12-17 08:22] LABS: ALANINE AMINOTRANSFERASE 45 IU/L (13-61); ALBUMIN 1.9 g/dL (3.4-5.0); ANION GAP 15; CALCIUM 8.2 mg/dL (8.5-10.1); CARBON DIOXIDE 24 mEq/L (21-32); CHLORIDE 98 mEq/L (98-107); INDEX HEMOLYSI 2 (1-3); INDEX ICTERIC 3 (1-4); INDEX LIPEMIC 1 (1-3); MAGNESIUM 2.3 mg/dL (1.8-2.4); UREA NITROGEN BLOOD 32 mg/dL (7-21); eGFR 32 mL/min (>60)
[2016-12-17] MEDS: POTASSIUM CHLORIDE 20MEQ TABLET SR PO SCH (09:00)
[2016-12-17] MEDS: RIFAXIMIN 550 MG TABLET PO SCH ×2 (09:12→21:57)
[2016-12-17] MEDS: PANTOPRAZOLE SODIUM 40 MG/VIAL IV SCH (09:12)
[2016-12-17] MEDS: FOLIC ACID 1MG TABLET PO SCH (09:12)
[2016-12-17] MEDS: FUROSEMIDE 20MG TABLET PO SCH (09:12)
[2016-12-17 09:13] LABS: MEAN PLATELET VOLUME 10.3 fl (7.4-10.4); PLATELET 60 x1000/uL (130-400)
[2016-12-17] MEDS ORDERED: SODIUM POLYSTYRENE SULFONATE 15 G/60 ML BOT PO NR (11:15)
[2016-12-17 12:00] VITALS: BP 94/59
[2016-12-17] MEDS: PIPERACILLIN/TAZ 3.375G PREMIX 50 ML IV SCH ×2 (13:58→21:57)
[2016-12-17 20:00] VITALS: BP 92/64
[2016-12-18] VITALS: BP 86/60
[2016-12-18 04:00] VITALS: BP 120/76
[2016-12-18] MEDS: LACTULOSE 20G/30ML UDC PO SCH ×3 (06:05→21:01)
[2016-12-18] MEDS: PIPERACILLIN/TAZ 3.375G PREMIX 50 ML IV SCH ×2 (06:05→14:24)
[2016-12-18 06:19] LABS: HEMATOCRIT. 26.8 % (42.0-52.0); HEMOGLOBIN. 8.9 g/dL (14.0-18.0); MEAN CORPUSCULAR HEMOGLOBIN 31.3 pg (28.0-32.0); MEAN CORPUSCULAR HGB CONC 33.2 g/dL (31.0-37.0); MEAN CORPUSCULAR VOLUME 94.3 fL (80.0-94.0); MEAN PLATELET VOLUME 9.3 fl (7.4-10.4); RED BLOOD CELL COUNT 2.84 mill/uL (4.7-6.1); RED CELL DISTRIBUTION WIDTH 17.7 % (11.6-14.6); WHITE BLOOD COUNT 14.5 x1000/uL (4.5-11.0)
[2016-12-18 06:39] LABS: CALCIUM 8.1 mg/dL (8.5-10.1)
[2016-12-18 06:51] LABS: DIFFERENTIAL COMMENT 1; PLATELET 41 x1000/uL (130-400)
[2016-12-18 08:00] VITALS: BP 97/60
[2016-12-18] MEDS: RIFAXIMIN 550 MG TABLET PO SCH ×2 (08:18→21:01)
[2016-12-18] MEDS: PANTOPRAZOLE SODIUM 40 MG/VIAL IV SCH (08:18)
[2016-12-18] MEDS: FOLIC ACID 1MG TABLET PO SCH (08:19)
[2016-12-18] MEDS: FUROSEMIDE 20MG TABLET PO SCH (08:19)
[2016-12-18 12:00] VITALS: BP 93/57
[2016-12-18 13:52] LABS: ANISOCYTOSIS 1+; PLATELET ESTIMATE MARKEDL
[2016-12-18 16:00] VITALS: BP 91/70
[2016-12-18] MEDS ORDERED: CEFTRIAXONE 2 G PREMIX 50 ML IV SCH ×2 (17:00)
[2016-12-18] MEDS ORDERED: CEFTRIAXONE 2 G in DEXTROSE 5% WATER 50 ML IV SCH (17:00)
[2016-12-18 20:00] VITALS: BP 89/69
[2016-12-19] VITALS: BP 95/60
[2016-12-19 04:00] VITALS: BP 94/65
[2016-12-19] MEDS: LACTULOSE 20G/30ML UDC PO SCH (06:16)
[2016-12-19 06:18] LABS: BASOPHILS % 0.2 % (0.0-2.0); EOSINOPHILS % 2.2 % (0.0-5.0); HEMATOCRIT. 29.6 % (42.0-52.0); HEMOGLOBIN. 9.8 g/dL (14.0-18.0); LYMPHOCYTES % 9.3 % (20.0-50.0); MEAN CORPUSCULAR HEMOGLOBIN 30.5 pg (28.0-32.0); MEAN CORPUSCULAR HGB CONC 33.3 g/dL (31.0-37.0); MEAN CORPUSCULAR VOLUME 91.7 fL (80.0-94.0); MONOCYTES % 11.4 % (2.0-8.0); NEUTROPHILS % 76.9 % (40.0-76.0); PLATELET 56 x1000/uL (130-400); RED BLOOD CELL COUNT 3.23 mill/uL (4.7-6.1); RED CELL DISTRIBUTION WIDTH 17.9 % (11.6-14.6); WHITE BLOOD COUNT 14.2 x1000/uL (4.5-11.0)
[2016-12-19 06:25] LABS: DIFFERENTIAL COMMENT 1
[2016-12-19 08:00] VITALS: BP 97/62
[2016-12-19 08:22] VITALS: BP 97/62
[2016-12-19] MEDS ORDERED: POTASSIUM CHLORIDE 20MEQ TABLET SR PO SCH (10:30)
[2016-12-19] MEDS: FOLIC ACID 1MG TABLET PO SCH (10:39)
[2016-12-19] MEDS: RIFAXIMIN 550 MG TABLET PO SCH (10:39)
[2016-12-19] MEDS: PANTOPRAZOLE SODIUM 40 MG/VIAL IV SCH (10:39)
[2016-12-19] MEDS: FUROSEMIDE 20MG TABLET PO SCH (10:40)
[2016-12-19 11:54] VITALS: BP 86/62
== END 2016-12-19 13:52 | DRG 720 ==
LOC: ER 13:44 → 7WST 16:33 → 3WST 12-06 02:27 → 8WST 12-12 18:30
PROVIDERS: ADMIT Internal Medicine; ATTEND Internal Medicine
PROC: 30233R1 Transfusion of Nonautologous Platelets into Peripheral Vein, Percutaneous Approach (ICD-10-PCS; 2016-12-08)
PROC: 0DB68ZX Excision of Stomach, Via Natural or Artificial Opening Endoscopic, Diagnostic (ICD-10-PCS; 2016-12-09)
PROC: 0DJD8ZZ Inspection of Lower Intestinal Tract, Via Natural or Artificial Opening Endoscopic (ICD-10-PCS; principal; 2016-12-09 14:00)
DX: A41.50 Gram-negative sepsis, unspecified (principal); I50.43 Acute on chronic combined systolic (congestive) and diastolic (congestive) heart failure; E43 Unspecified severe protein-calorie malnutrition; N17.9 Acute kidney failure, unspecified; K76.6 Portal hypertension; D69.59 Other secondary thrombocytopenia; K70.30 Alcoholic cirrhosis of liver without ascites; K80.10 Calculus of gallbladder with chronic cholecystitis without obstruction; K29.60 Other gastritis without bleeding; K72.90 Hepatic failure, unspecified without coma; I48.2 Chronic atrial fibrillation; M48.02 Spinal stenosis, cervical region; E87.6 Hypokalemia; N18.9 Chronic kidney disease, unspecified; M43.10 Spondylolisthesis, site unspecified; I34.0 Nonrheumatic mitral (valve) insufficiency; H53.40 Unspecified visual field defects; D53.9 Nutritional anemia, unspecified; D73.1 Hypersplenism; E78.00 Pure hypercholesterolemia, unspecified; I25.10 Atherosclerotic heart disease of native coronary artery without angina pectoris; K64.4 Residual hemorrhoidal skin tags; K57.30 Diverticulosis of large intestine without perforation or abscess without bleeding; K64.9 Unspecified hemorrhoids; K64.8 Other hemorrhoids; E78.5 Hyperlipidemia, unspecified; E83.42 Hypomagnesemia; E87.5 Hyperkalemia; B96.1 Klebsiella pneumoniae [K. pneumoniae] as the cause of diseases classified elsewhere; I13.0 Hypertensive heart and chronic kidney disease with heart failure and stage 1 through stage 4 chronic kidney disease, or unspecified chronic kidney disease; J32.9 Chronic sinusitis, unspecified; K92.2 Gastrointestinal hemorrhage, unspecified; K59.00 Constipation, unspecified; Z86.73 Personal history of transient ischemic attack (TIA), and cerebral infarction without residual deficits; Z68.25 Body mass index [BMI] 25.0-25.9, adult; Z88.6 Allergy status to analgesic agent; Z79.01 Long term (current) use of anticoagulants; Z91.030 Bee allergy status; Z79.82 Long term (current) use of aspirin; Z79.899 Other long term (current) drug therapy; I25.2 Old myocardial infarction; Z82.49 Family history of ischemic heart disease and other diseases of the circulatory system; Z87.820 Personal history of traumatic brain injury; Z95.810 Presence of automatic (implantable) cardiac defibrillator; Z98.61 Coronary angioplasty status
CPT/HCPCS: 36415; 71010; 76705; 78227; 80048; 80053; 80061; 81001; 82140; 82248; 82270; 82607; 82728; 82746; 82962; 83540; 83550; 83605; 83690; 83735; 83880; 84132; 84484; 85025; 85610; 85730; 86850; 86900; 87040; 87077; 87086; 87186; 88305; 88313; 93005; 93970; 94664; 96374; 96375; 97110; 97116; 97163; 97164; 97166; 97530; 97535; 99285; A4216; A6261; A9537; C1893; C9113; J0696; J1200; J1940; J2250; J2405; J2543; J3010; J3475; J3480; J7042; J7050; J7060; J7620; P9034